=== PATIENT | female | born 1970 | race Caucasian/White ===

== ENCOUNTER → 2024-09-24 15:00 | Outpatient (BNV) | payer OTHER, SELFPAY | PROVIDERS: Visit Provider Nurse Practitioner Family | DX: D75.839 Thrombocytosis, unspecified (principal) | CPT/HCPCS: 99214 ==

== ENCOUNTER 2024-10-22 14:00 | Outpatient (RCR) | payer OTHER, SELFPAY ==
[2024-10-15 14:19] VITALS: BP 123/69; PULSE 81; RESP 18; TEMP 36.6
[2024-10-15] MEDS: Ferric Carboxymaltose 750 MG in 0.9 % Sodium Chloride 250 ML 1060 MG IV (15:12)
[2024-10-22 14:17] VITALS: BP 114/55; PULSE 88; RESP 16; TEMP 36.7; O2SAT 97
[2024-10-22] MEDS: Ferric Carboxymaltose 750 MG in 0.9 % Sodium Chloride 250 ML 1060 MG IV (14:34)
== END 2024-10-22 15:07 | disposition home or self-care (01) ==
LOC: HO.INF 14:00
PROVIDERS: Visit Provider Nurse Practitioner Family
DX: D64.9 Anemia, unspecified (principal)
CPT/HCPCS: 36415; 82607; 82746; 82784; 83010; 85025; 85045; 86038; 86334; 86431; 96365; J1439